=== PATIENT | male | born 1945 | race American Indian/Alaskan Native ===

== ENCOUNTER 2017-04-28 06:39 | Day surgery (SDC) | payer BC ==
[2017-04-28] MEDS ORDERED: XYLOCAINE MPF 2% ONE (07:42)
[2017-04-28] MEDS ORDERED: DIPRIVAN 10 MG/ML IV ONE (07:42)
[2017-04-28] MEDS ORDERED: DILAUDID ONE (07:42)
[2017-04-28] MEDS ORDERED: DECADRON ONE (07:43)
[2017-04-28] MEDS ORDERED: ZOFRAN ONE (07:43)
--- NOTE | 2017-04-28 08:50 | Anesthesia Consultation ---
Anesthesia Consult and Med Hx Date of service: 04/28/17 - Airway Anesthetic Teeth Evaluation: Bridges ROM Head & Neck: Adequate Mental/Hyoid Distance: Adequate Mallampati Class: Class II Intubation Access Assessment: Probably Good - Pulmonary Exam CTA: Yes - Cardiac Exam Cardiac Exam: RRR - Pre-Operative Health Status ASA Pre-Surgery Classification: ASA2 Proposed Anesthetic Plan: General - Pulmonary Hx Smoking: Yes (STOPPED 1994-10/06PPD X 15 YRS) Hx Sleep Apnea: (JOANNA PRE SCREEN HIGH RISK) - Cardiovascular System Hx Hypertension: Yes (X 10 YRS) - Central Nervous System Hx Psychiatric Problems: No ([facility]/GETTING EVALUATION FOR PTSD) - Gastrointestinal Hx Gastroesophageal Reflux Disease: No - Endocrine Hx Renal Disease: Yes (renal stones) Hx Non-Insulin Dependent Diabetes: No - Other Systems Hx Alcohol Use: Yes Hx Substance Use: No Hx Cancer: No Hx Obesity: No
--- NOTE | 2017-04-28 08:51 | Anesthesia Day of Surgery ---
Anesthesia Day of Surgery - Day of Surgery Patient Examined: Yes Patient H&P Reviewed: Yes Patient is NPO: Yes
[2017-04-28] MEDS ORDERED: NACL BACTERIOSTATIC INFILTRATI ONE (08:55)
[2017-04-28] MEDS ORDERED: ANCEF/STERILE WATER 2 GM/20 ML 2 GM/20 ML SYRINGE IV NR (09:00)
[2017-04-28] MEDS ORDERED: PEPCID PO NR (10:00)
[2017-04-28] MEDS ORDERED: LACTATED RINGERS 1,000 ML IV SCH (10:00)
[2017-04-28] MEDS ORDERED: VERSED IV PRN (10:00)
--- NOTE | 2017-04-28 10:20 | Post Operative Note ---
Date of procedure: 04/28/17 Pre-op diagnosis: l renal stones Post-op diagnosis: same Findings: as above Procedure: L ESWL Anesthesia: LAILA Surgeon: DALJIT DUKE Estimated blood loss: none Pathology: none Condition: stable Disposition: PACU
--- NOTE | 2017-04-28 10:22 | Discharge Summary ---
Short Stay Discharge Plan Activity: other (no straining ) Weight Bearing Status: Full Weight Bearing Diet: low cholesterol, low salt Special Instructions: other (inc fluids ) Durable Medical Equipment Needed Upon Discharge: other (none) Follow up with: DALJIT DUKE MD [Staff Physician] - 7 Days
--- NOTE | 2017-04-28 11:39 | Post Anesthesia Evaluation ---
- Post Anesthesia Evaluation Patient Participated: Yes Airway Patent: Yes Stable Respiratory Function: Yes Nausea/Vomiting: No Temp > 96.8F: Yes Pain Manageable: Yes Adequeate Hydration: Yes Anesthesia Complications: No
--- NOTE | 2017-04-28 12:31 | Operative Report ---
PREOPERATIVE DIAGNOSES: Left renal stones, also right renal stone. POSTOPERATIVE DIAGNOSES: Left renal stones, also right renal stone. PROCEDURE: In situ left ESWL. SURGEON: Gavino Gallegos MD ANESTHESIA: General. FINDINGS: This is a gentleman with 3 stones in left kidney. One is quite well visualized. The others is less well visualized. He now presents for lithotripsy. There is no hydronephrosis, no distal obstruction. DESCRIPTION OF PROCEDURE: Patient was brought to the operating room and placed on the operating table. Following the induction of anesthesia, placed over the F2 focal point, stone was well localized. Shocks were begun at 1 kV and increased to 5 kV. A renal pause was carried out. The patient tolerated the procedure well. No significant complications. There was clearly a change in the shape and consistency of the major stone and brought to recovery in stable condition. JOB# [id number] DINH/MILTON
[2017-04-28 12:49] VITALS: BP 129/64
== END 2017-04-28 12:40 | disposition home or self-care (01) ==
LOC: OR 06:39
PROVIDERS: ATTEND Urology
DX: N20.0 Calculus of kidney (principal); I10 Essential (primary) hypertension; Z87.891 Personal history of nicotine dependence; Z72.89 Other problems related to lifestyle; Z79.899 Other long term (current) drug therapy
CPT/HCPCS: 36415; 50590; 84132; J0690; J1100; J1170; J2405; J2704; J7120